=== PATIENT | female | born 1950 | race Caucasian/White ===

== ENCOUNTER 2017-04-11 14:00 | Inpatient (IN) | payer OTHER ==
[~2017-04-11] VITALS: Ht 157.5 cm; Wt 67.0 kg
[2017-04-11 14:07] VITALS: BP 149/74; PULSE 75; RESP 18; TEMP 97.9; O2SAT 98
[2017-04-11 14:14] VITALS: BP 149/74; PULSE 75; RESP 18; TEMP 97.9; O2SAT 99
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
[2017-04-11] MEDS ORDERED: MISCELLANEOUS NURSING INFORMATION XX SCH (15:15)
[2017-04-11] MEDS ORDERED: SODIUM CHLORIDE 0.9% FLUSH 10 ML FLUSH IV FLUSH PRN (15:15)
[2017-04-11] MEDS ORDERED: CHLORHEXIDINE GLUCONATE 2 % 1 PACK (2 CLOTHS) TOP PRN (15:15)
[2017-04-11] MEDS ORDERED: PANTOPRAZOLE SODIUM 40 MG VIAL IVP SCH (16:00)
[2017-04-11] MEDS ORDERED: ACETAMINOPHEN 325 MG TAB PO PRN (16:00)
[2017-04-11] MEDS ORDERED: HYDROmorphone HCL PF 1 MG/ML VIAL IVP PRN (16:00)
[2017-04-11] MEDS ORDERED: MAGNESIUM HYDROXIDE SUSP 30 ML CUP PO PRN (16:00)
[2017-04-11] MEDS ORDERED: ONDANSETRON HCL 4 MG/2 ML VIAL IV PRN (16:00)
[2017-04-11] MEDS ORDERED: ENALAPRILAT 1.25 MG/ML VIAL IV PRN (16:00)
[2017-04-11 16:15] VITALS: BP 150/78; PULSE 76; RESP 16; TEMP 96.4; O2SAT 96
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
[2017-04-11] MEDS: SODIUM CHLOR 0.9% 1000 ML INJ 1,000 ML IV SCH (16:57)
[2017-04-11] MEDS: ACETAMINOPHEN/HYDROcodone 325 MG/5 MG TAB PO PRN ×2 (18:54→23:26)
[2017-04-11 20:00] VITALS: BP 136/66; PULSE 85; RESP 19; TEMP 97.5; O2SAT 98
[2017-04-11] MEDS: DOCUSATE SODIUM 100 MG CAP PO SCH (20:23)
[2017-04-12 00:06] VITALS: BP 141/76; PULSE 83; RESP 20; TEMP 96.7; O2SAT 96
[2017-04-12] MEDS: SODIUM CHLOR 0.9% 1000 ML INJ 1,000 ML IV SCH (02:24)
[2017-04-12] MEDS: ACETAMINOPHEN/HYDROcodone 325 MG/5 MG TAB PO PRN ×2 (03:59→09:00)
[2017-04-12] MEDS ORDERED: CHLORHEXIDINE GLUCONATE 2 % 1 PACK (2 CLOTHS) TOP SCH (04:00)
[2017-04-12 06:24] LABS: AUTOMATED NEUTROPHIL # 4.6 TH/MM3 (1.8-7.7); BASOPHIL % 0.5 % (0.0-2.0); EOSINOPHIL % 0.7 % (0.0-4.0); HEMATOCRIT 35.7 % (35.0-46.0); HEMO FLAGS DIFF FINAL; LYMPH % 30.1 % (9.0-44.0); LYMPHOCYTE # 2.3 TH/MM3 (1.0-4.8); MEAN CELL VOLUME 83.7 FL (80.0-100.0); MEAN CORPUSCULAR HEMOGLOBIN 28.5 PG (27.0-34.0); NEUT % 60.7 % (16.0-70.0); PLATELET COUNT 239 TH/MM3 (150-450); RED BLOOD COUNT 4.27 MIL/MM3 (4.00-5.30); RED CELL DISTRIBUTION WIDTH 13.2 % (11.6-17.2); WHITE BLOOD COUNT 7.5 TH/MM3 (4.0-11.0)
[2017-04-12 07:01] LABS: ALKALINE PHOSPHATASE 60 U/L (45-117); ALT (GPT) 27 U/L (10-53); ANION GAP 6 MEQ/L (5-15); BICARBONATE 28.3 MEQ/L (21.0-32.0); BLOOD UREA NITROGEN 13 MG/DL (7-18); CHLORIDE 109 MEQ/L (98-107); GLOMERULAR FILTRATION RATE 93 ML/MIN (>89); SODIUM (NA) 143 MEQ/L (136-145); TOTAL BILIRUBIN ADULT 0.7 MG/DL (0.2-1.0)
[2017-04-12 07:02] LABS: AST (GOT) 29 U/L (15-37); POTASSIUM 3.9 MEQ/L (3.5-5.1)
[2017-04-12 08:00] VITALS: BP 157/81; PULSE 74; RESP 17; TEMP 97.7; O2SAT 98
[2017-04-12] MEDS: DOCUSATE SODIUM 100 MG CAP PO SCH (09:00)
[2017-04-12] MEDS ORDERED: POLYETHYLENE GLYCOL 17 GM PKG PO SCH (09:00)
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
[2017-04-12] MEDS ORDERED: NORC5TAB PO (10:13)
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
== END 2017-04-12 14:16 | disposition home or self-care (01) | DRG 914 ==
LOC: NEPE 14:00 → NEDA 15:09 → N07B 16:07
PROVIDERS: ADMIT Surgery; ATTEND Surgery
DX: S36.892A Contusion of other intra-abdominal organs, initial encounter (principal); I10 Essential (primary) hypertension; S60.811A Abrasion of right wrist, initial encounter; S60.812A Abrasion of left wrist, initial encounter; S30.1XXA Contusion of abdominal wall, initial encounter; I25.10 Atherosclerotic heart disease of native coronary artery without angina pectoris; V43.52XA Car driver injured in collision with other type car in traffic accident, initial encounter; W22.11XA Striking against or struck by driver side automobile airbag, initial encounter; Y93.89 Activity, other specified; Y99.9 Unspecified external cause status; Y92.413 State road as the place of occurrence of the external cause
CPT/HCPCS: 71010; 80053; 83690; 85025; 87641; 94150; 99285; C9113; J7030